=== PATIENT | female | born 1965 | race Caucasian/White ===

== ENCOUNTER 2021-09-05 22:38 | Inpatient (IN) | payer SELFPAY ==
[2021-09-06 01:08] VITALS: BMI 20.5
[2021-09-06] MEDS ORDERED: Acetaminophen 325 MG TAB PO PRN ×2 (01:42→01:43)
[2021-09-06] MEDS: Morphine 4 MG/ML VIAL SLOW IVP PRN ×7 (02:31→18:11)
[2021-09-06] MEDS ORDERED: Ondansetron PF 4 MG/2 ML Vial IVP PRN (03:51)
[2021-09-06] MEDS ORDERED: Piperacillin/Tazobactam 3.375 GM in Sodium Chloride 0.9% 100 ML IVPB SCH ×5 (04:00→14:00)
[2021-09-06] MEDS: Sodium Chloride 0.9% 1,000 ML IV SCH ×2 (05:40→19:03)
[2021-09-06] MEDS: Nicotine 21 MG PATCH TD SCH (05:42)
[2021-09-06 05:51] LABS: #Eosinphils 0.1 thou/uL (0.0-0.7); #Lymphocytes 1.6 thou/uL (1.20-3.40); #Neutrophils 5.2 thou/uL (1.40-6.50); %Basophils 0.3 % (0.0-1.0); %Eosinophils 1.4 % (0.0-10.0); %Lymphocytes 19.7 % (21.0-51.0); %Monocytes 13.1 % (0.0-10.0); %Neutrophils 65.5 % (42.0-75.0); Hemoglobin 7.1 g/dL (12.0-16.0); Mean Corpuscular HGB CONC 31.6 g/dL (32.0-36.0); Mean Corpuscular Hemoglobin 25.9 pg (27.0-31.0); Mean Corpuscular Volume 82.1 fL (78.0-98.0); Mean Platelet Volume 7.4 fL (7.4-10.4); Platelet Count 315 thou/uL (130-400); RBC Distribution Width 14.3 % (11.5-14.5); Red Blood Cell (RBC) Count 2.75 mill/uL (4.20-5.40)
[2021-09-06 06:02] LABS: Anion Gap 7 mmol/L (10-20); BUN (Urea Nitrogen) 4 mg/dL (9.8-20.1); Calc. Creatinine Clearance 77 mL/min (70-130); Carbon Dioxide 28 mmol/L (22-29); Chloride 107 mmol/L (98-107); Glucose 96 mg/dL (70-105); Potassium 3.5 mmol/L (3.5-5.1); Sodium 138 mmol/L (136-145)
[2021-09-06] MEDS ORDERED: Sodium Chloride 0.9% 500 ML IV SCH (09:00)
[2021-09-06] MEDS: D5 1/2 NS w/20 mEq KCL 1,000 ML IV SCH ×2 (09:52→19:01)
[2021-09-06 11:45] LABS: INR-International Normal Ratio 1.2; Prothrombin Time 14.9 sec (12.0-14.7)
[2021-09-06 11:46] LABS: PTT 32.9 sec (22.9-36.1)
[2021-09-06 11:50] LABS: Iron Less than 8 ug/dL (50-170); Iron Binding Capacity, Total 190 mcg/dL (265-497)
[2021-09-06 13:20] LABS: Hemoglobin 6.9 g/dL (12.0-16.0)
[2021-09-06] MEDS ORDERED: Sodium Bicarbonate 2.5 MEQ/5 ML VIAL ONE (13:46)
[2021-09-06] MEDS ORDERED: Fentanyl 100 MCG/2 ML VIAL ONE (13:46)
[2021-09-06] MEDS ORDERED: Midazolam HCl 2 mg/2 ml Vial ONE (13:46)
[2021-09-06] MEDS ORDERED: Meropenem 1 GM in Sodium Chloride 0.9% 100 ML IVPB SCH (14:00)
[2021-09-06] MEDS ORDERED: Ondansetron PF 4 MG/2 ML Vial ONE (14:14)
[2021-09-06] MEDS: Ondansetron PF 4 MG/2 ML Vial IVP PRN ×3 (14:14→23:06)
[2021-09-06] MEDS ORDERED: Morphine 4 MG/ML VIAL ONE (14:32)
[2021-09-06] MEDS ORDERED: Cyanocobalamin 1000 MCG/ML VIAL IM SCH (17:30)
[2021-09-06] MEDS: Iron, Sodium Ferric Gluconate 125 MG in Sodium Chloride 0.9% 100 ML IVPB SCH (21:40)
[2021-09-06] MEDS: HYDROcodone/Acetaminophen 5/325 mg Tablet PO PRN (21:48)
[2021-09-06] MEDS: Zolpidem Tartrate 5 MG TAB PO PRN (21:49)
[2021-09-06 22:57] LABS: Hemoglobin 8.1 g/dL (12.0-16.0)
[2021-09-06] MEDS: Meropenem 1 GM in Sodium Chloride 0.9% 100 ML IVPB SCH (23:06)
[2021-09-07] MEDS: Nicotine 21 MG PATCH TD SCH (03:51)
[2021-09-07 05:28] LABS: #Eosinphils 0.1 thou/uL (0.0-0.7); #Lymphocytes 1.1 thou/uL (1.20-3.40); #Monocytes 0.9 thou/uL (0.11-0.59); #Neutrophils 4.7 thou/uL (1.40-6.50); %Basophils 0.3 % (0.0-1.0); %Eosinophils 0.8 % (0.0-10.0); %Lymphocytes 16.1 % (21.0-51.0); %Monocytes 13.9 % (0.0-10.0); %Neutrophils 68.9 % (42.0-75.0); Hemoglobin 7.5 g/dL (12.0-16.0); Mean Corpuscular HGB CONC 31.9 g/dL (32.0-36.0); Mean Corpuscular Hemoglobin 26.2 pg (27.0-31.0); Mean Corpuscular Volume 82.2 fL (78.0-98.0); Mean Platelet Volume 7.7 fL (7.4-10.4); Platelet Count 273 thou/uL (130-400); RBC Distribution Width 14.1 % (11.5-14.5); Red Blood Cell (RBC) Count 2.84 mill/uL (4.20-5.40); White Blood Cell (WBC) Count 6.8 thou/uL (4.8-10.8)
[2021-09-07 05:50] LABS: Anion Gap 8 mmol/L (10-20); BUN (Urea Nitrogen) Less than 4 mg/dL (9.8-20.1); Calc. Creatinine Clearance 82 mL/min (70-130); Calcium 7.8 mg/dL (7.8-10.44); Carbon Dioxide 26 mmol/L (22-29); Chloride 105 mmol/L (98-107); Glucose 305 mg/dL (70-105); Potassium 4.1 mmol/L (3.5-5.1); Sodium 135 mmol/L (136-145)
[2021-09-07] MEDS: Meropenem 1 GM in Sodium Chloride 0.9% 100 ML IVPB SCH ×2 (09:26→16:40)
[2021-09-07] MEDS: Cyanocobalamin (Vitamin B-12) 1,000 MCG TAB PO SCH (09:27)
[2021-09-07] MEDS: PARoxetine 20 MG TAB PO SCH (09:27)
[2021-09-07] MEDS: D5 1/2 NS w/20 mEq KCL 1,000 ML IV SCH ×2 (09:29→19:31)
[2021-09-07] MEDS: HYDROcodone/Acetaminophen 5/325 mg Tablet PO PRN ×3 (09:51→22:23)
[2021-09-07] MEDS: MULTIVIT/IRON SULF/FOLIC ACID 1 EACH TAB PO SCH (11:10)
[2021-09-07] MEDS: Iron, Sodium Ferric Gluconate 125 MG in Sodium Chloride 0.9% 100 ML IVPB SCH (20:56)
[2021-09-07] MEDS: Zolpidem Tartrate 5 MG TAB PO PRN (22:23)
[2021-09-08] MEDS: Meropenem 1 GM in Sodium Chloride 0.9% 100 ML IVPB SCH ×3 (00:02→15:19)
[2021-09-08] MEDS: Nicotine 21 MG PATCH TD SCH (03:59)
[2021-09-08] MEDS: D5 1/2 NS w/20 mEq KCL 1,000 ML IV SCH (03:59)
[2021-09-08 05:29] LABS: #Eosinphils 0.1 thou/uL (0.0-0.7); #Lymphocytes 1.1 thou/uL (1.20-3.40); #Monocytes 0.9 thou/uL (0.11-0.59); #Neutrophils 5.2 thou/uL (1.40-6.50); %Basophils 0.3 % (0.0-1.0); %Eosinophils 1.7 % (0.0-10.0); %Lymphocytes 15.5 % (21.0-51.0); %Monocytes 11.8 % (0.0-10.0); %Neutrophils 70.7 % (42.0-75.0); Hemoglobin 7.8 g/dL (12.0-16.0); Mean Corpuscular HGB CONC 31.7 g/dL (32.0-36.0); Mean Corpuscular Hemoglobin 26.3 pg (27.0-31.0); Mean Corpuscular Volume 82.9 fL (78.0-98.0); Mean Platelet Volume 7.6 fL (7.4-10.4); Platelet Count 303 thou/uL (130-400); RBC Distribution Width 14.3 % (11.5-14.5); Red Blood Cell (RBC) Count 2.96 mill/uL (4.20-5.40); White Blood Cell (WBC) Count 7.3 thou/uL (4.8-10.8)
[2021-09-08 05:50] LABS: Anion Gap 11 mmol/L (10-20); BUN (Urea Nitrogen) Less than 4 mg/dL (9.8-20.1); Calc. Creatinine Clearance 87 mL/min (70-130); Calcium 8.4 mg/dL (7.8-10.44); Carbon Dioxide 25 mmol/L (22-29); Chloride 105 mmol/L (98-107); Glucose 92 mg/dL (70-105); Potassium 3.3 mmol/L (3.5-5.1); Sodium 138 mmol/L (136-145)
[2021-09-08] MEDS: HYDROcodone/Acetaminophen 5/325 mg Tablet PO PRN ×3 (06:31→22:14)
[2021-09-08] MEDS: PARoxetine 20 MG TAB PO SCH (09:06)
[2021-09-08] MEDS: MULTIVIT/IRON SULF/FOLIC ACID 1 EACH TAB PO SCH (09:06)
[2021-09-08] MEDS: Cyanocobalamin (Vitamin B-12) 1,000 MCG TAB PO SCH (09:06)
[2021-09-08] MEDS ORDERED: Cyanocobalamin 1000 MCG/ML VIAL IM SCH (10:45)
[2021-09-08] MEDS ORDERED: Potassium Chloride 20 MEQ TAB PO SCH (10:45)
[2021-09-08] MEDS ORDERED: Saccharomyces boulardii 250 MG CAP PO SCH (11:15)
[2021-09-08] MEDS: Iron, Sodium Ferric Gluconate 125 MG in Sodium Chloride 0.9% 100 ML IVPB SCH (18:47)
[2021-09-08] MEDS ORDERED: Cipro 250 MG TAB PO SCH (22:00)
[2021-09-09] MEDS: Zolpidem Tartrate 5 MG TAB PO PRN ×2 (00:31→22:12)
[2021-09-09] MEDS: Morphine 4 MG/ML VIAL SLOW IVP PRN (00:38)
[2021-09-09] MEDS: metroNIDAZOLE 500 MG TAB PO SCH ×4 (01:10→20:04)
[2021-09-09] MEDS: Nicotine 21 MG PATCH TD SCH (04:29)
[2021-09-09] MEDS: D5 1/2 NS w/20 mEq KCL 1,000 ML IV SCH (04:29)
[2021-09-09] MEDS: Cipro 250 MG TAB PO SCH ×2 (06:21→20:04)
[2021-09-09] MEDS: Cyanocobalamin (Vitamin B-12) 1,000 MCG TAB PO SCH (09:01)
[2021-09-09] MEDS: MULTIVIT/IRON SULF/FOLIC ACID 1 EACH TAB PO SCH (09:01)
[2021-09-09] MEDS: PARoxetine 20 MG TAB PO SCH (09:02)
[2021-09-09] MEDS: Iron, Sodium Ferric Gluconate 125 MG in Sodium Chloride 0.9% 100 ML IVPB SCH (09:02)
[2021-09-09] MEDS: Saccharomyces boulardii 250 MG CAP PO SCH (09:02)
[2021-09-09] MEDS: HYDROcodone/Acetaminophen 5/325 mg Tablet PO PRN ×3 (12:17→22:12)
[2021-09-10] MEDS: D5 1/2 NS w/20 mEq KCL 1,000 ML IV SCH (04:04)
[2021-09-10] MEDS: Nicotine 21 MG PATCH TD SCH (04:05)
[2021-09-10] MEDS: Cipro 250 MG TAB PO SCH ×2 (05:18→20:04)
[2021-09-10 05:38] LABS: #Eosinphils 0.1 thou/uL (0.0-0.7); #Lymphocytes 1.1 thou/uL (1.20-3.40); #Monocytes 0.9 thou/uL (0.11-0.59); #Neutrophils 5.2 thou/uL (1.40-6.50); %Basophils 0.6 % (0.0-1.0); %Eosinophils 1.6 % (0.0-10.0); %Lymphocytes 15.6 % (21.0-51.0); %Monocytes 11.7 % (0.0-10.0); %Neutrophils 70.4 % (42.0-75.0); Hemoglobin 7.8 g/dL (12.0-16.0); Mean Corpuscular HGB CONC 31.6 g/dL (32.0-36.0); Mean Corpuscular Hemoglobin 26.4 pg (27.0-31.0); Mean Corpuscular Volume 83.7 fL (78.0-98.0); Mean Platelet Volume 7.7 fL (7.4-10.4); Platelet Count 304 thou/uL (130-400); RBC Distribution Width 15.1 % (11.5-14.5); Red Blood Cell (RBC) Count 2.95 mill/uL (4.20-5.40); White Blood Cell (WBC) Count 7.3 thou/uL (4.8-10.8)
[2021-09-10 05:46] LABS: INR-International Normal Ratio 1.2; PTT 39.5 sec (22.9-36.1); Prothrombin Time 15.5 sec (12.0-14.7)
[2021-09-10 06:09] LABS: ALT (SGPT) 8 U/L (8-55); AST (SGOT) 14 U/L (5-34); Albumin 2.6 g/dL (3.5-5.0); Alkaline Phosphatase 83 U/L (40-110); Anion Gap 10 mmol/L (10-20); BUN (Urea Nitrogen) 4 mg/dL (9.8-20.1); Bilirubin, Total 0.2 mg/dL (0.2-1.2); Calc. Creatinine Clearance 90 mL/min (70-130); Calcium 8.5 mg/dL (7.8-10.44); Carbon Dioxide 27 mmol/L (22-29); Chloride 106 mmol/L (98-107); Globulin 3.6 g/dL (2.4-3.5); Glucose 92 mg/dL (70-105); Magnesium 1.8 mg/dL (1.6-2.6); Phosphorus 2.9 mg/dL (2.3-4.7); Potassium 3.8 mmol/L (3.5-5.1); Protein, Total 6.2 g/dL (6.0-8.3); Sodium 139 mmol/L (136-145)
[2021-09-10] MEDS: metroNIDAZOLE 500 MG TAB PO SCH ×3 (09:06→20:04)
[2021-09-10] MEDS: MULTIVIT/IRON SULF/FOLIC ACID 1 EACH TAB PO SCH (09:06)
[2021-09-10] MEDS: Cyanocobalamin (Vitamin B-12) 1,000 MCG TAB PO SCH (09:06)
[2021-09-10] MEDS: Saccharomyces boulardii 250 MG CAP PO SCH (09:06)
[2021-09-10] MEDS: PARoxetine 20 MG TAB PO SCH (09:06)
[2021-09-10] MEDS: Iron, Sodium Ferric Gluconate 125 MG in Sodium Chloride 0.9% 100 ML IVPB SCH (09:06)
[2021-09-10] MEDS ORDERED: Enoxaparin Sodium 40 MG/0.4 ML SYRINGE SC SCH (10:00)
[2021-09-10] MEDS: HYDROcodone/Acetaminophen 5/325 mg Tablet PO PRN ×3 (13:51→23:47)
[2021-09-10] MEDS: Zolpidem Tartrate 5 MG TAB PO PRN (23:47)
[2021-09-11] MEDS: D5 1/2 NS w/20 mEq KCL 1,000 ML IV SCH ×2 (02:29→17:39)
[2021-09-11] MEDS: Nicotine 21 MG PATCH TD SCH (04:53)
[2021-09-11] MEDS: Cipro 250 MG TAB PO SCH ×2 (04:53→20:38)
[2021-09-11] MEDS: HYDROcodone/Acetaminophen 5/325 mg Tablet PO PRN ×4 (04:54→21:59)
[2021-09-11] MEDS: Saccharomyces boulardii 250 MG CAP PO SCH (08:26)
[2021-09-11] MEDS: PARoxetine 20 MG TAB PO SCH (08:27)
[2021-09-11] MEDS: MULTIVIT/IRON SULF/FOLIC ACID 1 EACH TAB PO SCH (08:27)
[2021-09-11] MEDS: Cyanocobalamin (Vitamin B-12) 1,000 MCG TAB PO SCH (08:27)
[2021-09-11] MEDS: metroNIDAZOLE 500 MG TAB PO SCH ×3 (08:27→20:38)
[2021-09-11 09:53] LABS: #Eosinphils 0.2 thou/uL (0.0-0.7); #Monocytes 0.8 thou/uL (0.11-0.59); #Neutrophils 5.5 thou/uL (1.40-6.50); %Basophils 0.2 % (0.0-1.0); %Eosinophils 2.1 % (0.0-10.0); %Lymphocytes 13.7 % (21.0-51.0); %Monocytes 11.1 % (0.0-10.0); %Neutrophils 72.9 % (42.0-75.0); Hemoglobin 8.7 g/dL (12.0-16.0); Mean Corpuscular HGB CONC 31.7 g/dL (32.0-36.0); Mean Corpuscular Hemoglobin 26.5 pg (27.0-31.0); Mean Corpuscular Volume 83.3 fL (78.0-98.0); Mean Platelet Volume 7.9 fL (7.4-10.4); Platelet Count 319 thou/uL (130-400); RBC Distribution Width 15.8 % (11.5-14.5); Red Blood Cell (RBC) Count 3.29 mill/uL (4.20-5.40); White Blood Cell (WBC) Count 7.6 thou/uL (4.8-10.8)
[2021-09-11 10:19] LABS: ALT (SGPT) 8 U/L (8-55); AST (SGOT) 11 U/L (5-34); Albumin 2.6 g/dL (3.5-5.0); Alkaline Phosphatase 86 U/L (40-110); Anion Gap 12 mmol/L (10-20); BUN (Urea Nitrogen) 4 mg/dL (9.8-20.1); Bilirubin, Total 0.2 mg/dL (0.2-1.2); Calc. Creatinine Clearance 85 mL/min (70-130); Calcium 8.4 mg/dL (7.8-10.44); Carbon Dioxide 26 mmol/L (22-29); Chloride 104 mmol/L (98-107); Glucose 115 mg/dL (70-105); Magnesium 1.8 mg/dL (1.6-2.6); Phosphorus 2.8 mg/dL (2.3-4.7); Potassium 3.8 mmol/L (3.5-5.1); Protein, Total 6.6 g/dL (6.0-8.3); Sodium 138 mmol/L (136-145)
[2021-09-11] MEDS: Ondansetron PF 4 MG/2 ML Vial IVP PRN (11:28)
[2021-09-11] MEDS: Zolpidem Tartrate 5 MG TAB PO PRN (21:59)
[2021-09-12] MEDS: HYDROcodone/Acetaminophen 5/325 mg Tablet PO PRN ×3 (01:43→15:51)
[2021-09-12] MEDS: Nicotine 21 MG PATCH TD SCH (03:27)
[2021-09-12] MEDS: D5 1/2 NS w/20 mEq KCL 1,000 ML IV SCH (04:57)
[2021-09-12] MEDS: Cipro 250 MG TAB PO SCH (04:57)
[2021-09-12 05:50] LABS: #Eosinphils 0.1 thou/uL (0.0-0.7); #Lymphocytes 1.4 thou/uL (1.20-3.40); #Monocytes 0.8 thou/uL (0.11-0.59); #Neutrophils 5.4 thou/uL (1.40-6.50); %Basophils 0.3 % (0.0-1.0); %Eosinophils 1.8 % (0.0-10.0); %Lymphocytes 17.9 % (21.0-51.0); %Monocytes 10.9 % (0.0-10.0); %Neutrophils 69.1 % (42.0-75.0); Hemoglobin 8.1 g/dL (12.0-16.0); Mean Corpuscular HGB CONC 31.1 g/dL (32.0-36.0); Mean Corpuscular Hemoglobin 26.1 pg (27.0-31.0); Mean Corpuscular Volume 84.1 fL (78.0-98.0); Mean Platelet Volume 7.6 fL (7.4-10.4); Platelet Count 322 thou/uL (130-400); Red Blood Cell (RBC) Count 3.11 mill/uL (4.20-5.40); White Blood Cell (WBC) Count 7.8 thou/uL (4.8-10.8)
[2021-09-12 06:14] LABS: ALT (SGPT) Less than 7 U/L (8-55); AST (SGOT) 11 U/L (5-34); Albumin 2.5 g/dL (3.5-5.0); Alkaline Phosphatase 84 U/L (40-110); Anion Gap 10 mmol/L (10-20); BUN (Urea Nitrogen) 5 mg/dL (9.8-20.1); Bilirubin, Total 0.2 mg/dL (0.2-1.2); Calc. Creatinine Clearance 85 mL/min (70-130); Calcium 8.2 mg/dL (7.8-10.44); Carbon Dioxide 26 mmol/L (22-29); Chloride 106 mmol/L (98-107); Globulin 3.8 g/dL (2.4-3.5); Glucose 101 mg/dL (70-105); Magnesium 1.9 mg/dL (1.6-2.6); Phosphorus 3.1 mg/dL (2.3-4.7); Potassium 3.9 mmol/L (3.5-5.1); Protein, Total 6.3 g/dL (6.0-8.3); Sodium 138 mmol/L (136-145)
[2021-09-12] MEDS: Saccharomyces boulardii 250 MG CAP PO SCH (09:42)
[2021-09-12] MEDS: PARoxetine 20 MG TAB PO SCH (09:42)
[2021-09-12] MEDS: MULTIVIT/IRON SULF/FOLIC ACID 1 EACH TAB PO SCH (09:42)
[2021-09-12] MEDS: Cyanocobalamin (Vitamin B-12) 1,000 MCG TAB PO SCH (09:42)
[2021-09-12] MEDS: metroNIDAZOLE 500 MG TAB PO SCH ×2 (09:42→15:05)
[2021-09-12 16:24] VITALS: BP 107/70; TEMP 98.5
== END 2021-09-12 16:29 | disposition home or self-care (01) | DRG 374 ==
LOC: SURG B 22:38
PROVIDERS: ADMIT Student in an Organized Health Care Education/Training Program; ATTEND Family Medicine
PROC: 30233N1 Transfusion of Nonautologous Red Blood Cells into Peripheral Vein, Percutaneous Approach (ICD-10-PCS; 2021-09-05)
PROC: 0FB03ZX Excision of Liver, Percutaneous Approach, Diagnostic (ICD-10-PCS; principal; 2021-09-06)
DX: C18.3 Malignant neoplasm of hepatic flexure (principal); K63.1 Perforation of intestine (nontraumatic); A41.9 Sepsis, unspecified organism; C78.7 Secondary malignant neoplasm of liver and intrahepatic bile duct; Z51.5 Encounter for palliative care; Z66 Do not resuscitate; F32.A Depression, unspecified; E53.8 Deficiency of other specified B group vitamins; D64.9 Anemia, unspecified; F41.9 Anxiety disorder, unspecified; R73.03 Prediabetes; G47.00 Insomnia, unspecified; F17.210 Nicotine dependence, cigarettes, uncomplicated; Z79.899 Other long term (current) drug therapy; Z90.89 Acquired absence of other organs
CPT/HCPCS: 36415; 36430; 47000; 49020; 77002; 80048; 80053; 82378; 82607; 82746; 83036; 83540; 83550; 83735; 84100; 85025; 85610; 85730; 86850; 86900; 86901; 88307; 88341; 88342; C1729; J2185; J2250; J2270; J2405; J2543; J2916; J3010; J3420; J3480; J3490; J7030; J7050; P9016

== ENCOUNTER 2021-09-20 00:16 | Inpatient (IN) | payer SELFPAY ==
[2021-09-20] MEDS: Morphine 4 MG/ML VIAL SLOW IVP PRN ×2 (03:04→08:23)
[2021-09-20 03:34] VITALS: BMI 21.7
[2021-09-20] MEDS: D5 0.9% NS w/ 20 mEq KCl 1,000 ML IV SCH ×2 (09:30→17:23)
[2021-09-20] MEDS ORDERED: Midazolam HCl 2 mg/2 ml Vial ONE (09:33)
[2021-09-20] MEDS ORDERED: Fentanyl 100 MCG/2 ML VIAL ONE (09:33)
[2021-09-20] MEDS: Famotidine/PF 20 mg/2ml Vial SLOW IVP SCH ×2 (09:33→21:59)
[2021-09-20] MEDS: Pantoprazole 40 MG VIAL IVP SCH ×2 (09:33→21:59)
[2021-09-20] MEDS ORDERED: SUGAMMADEX SODIUM 200 MG/2 ML VIAL ONE (09:34)
[2021-09-20] MEDS ORDERED: Lactated Ringer's 1,000 ML IV SCH (09:45)
[2021-09-20] MEDS ORDERED: Potassium Chloride 20 MEQ in Premix Bag 1 BAG IVPB SCH (09:45)
[2021-09-20] MEDS ORDERED: Piperacillin/Tazobactam 3.375 GM in Sodium Chloride 0.9% 100 ML IVPB SCH (10:00)
[2021-09-20] MEDS ORDERED: Piperacillin/Tazobactam 3.375 GM VIAL ONE (10:51)
[2021-09-20] MEDS ORDERED: Sodium Chloride 0.9% 100 ML ONE (10:52)
[2021-09-20] MEDS ORDERED: Dexamethasone 20 MG/5 ML VIAL ONE (11:05)
[2021-09-20] MEDS ORDERED: Rocuronium Bromide 10 MG/ML (10ML VIAL) ONE (11:05)
[2021-09-20] MEDS ORDERED: Ondansetron PF 4 MG/2 ML Vial ONE ×2 (11:05→13:37)
[2021-09-20] MEDS ORDERED: Lidocaine 1% PF 5 ML VIAL ONE (11:05)
[2021-09-20] MEDS ORDERED: PROPOFOL 200 MG/20 ML VIAL ONE (11:05)
[2021-09-20] MEDS ORDERED: ePHEDrine 50 MG/ML VIAL ONE (11:05)
[2021-09-20] MEDS ORDERED: Ketorolac Tromethamine 30 MG/ML VIAL ONE (11:05)
[2021-09-20] MEDS ORDERED: Bupivacaine 0.25% 10 ML VIAL ONE (11:30)
[2021-09-20] MEDS ORDERED: EPINEPHrine 1 MG/ML AMP ONE (11:30)
[2021-09-20 12:34] LABS: SARS-CoV-2 NAA Rapid Test Not Detected (NotDetected)
[2021-09-20] MEDS ORDERED: Meperidine HCl/PF 25 MG/ML VIAL SLOW IVP PRN (12:50)
[2021-09-20] MEDS ORDERED: Promethazine HCl 25 MG/ML VIAL IM PRN ×2 (12:50→13:28)
[2021-09-20] MEDS ORDERED: Promethazine HCl 25 MG/ML VIAL IVPB PRN (12:50)
[2021-09-20] MEDS ORDERED: HYDROmorphone 2 MG/ML VIAL SLOW IVP PRN (12:50)
[2021-09-20] MEDS ORDERED: Ondansetron HCl/PF 4 MG/2 ML Vial IVP PRN (12:50)
[2021-09-20] MEDS ORDERED: Naloxone HCl 0.4 mg/ml Vial IV PRN (13:28)
[2021-09-20] MEDS ORDERED: diphenhydrAMINE 50 MG/ML VIAL IM PRN (13:28)
[2021-09-20] MEDS ORDERED: fentaNYL Citrate/PF 2,000 MCG in Sodium Chloride 0.9% 60 ML IV PRN (13:28)
[2021-09-20] MEDS ORDERED: Zolpidem Tartrate 5 MG TAB PO PRN (13:28)
[2021-09-20] MEDS ORDERED: Ondansetron PF 4 MG/2 ML Vial IVP PRN (13:28)
[2021-09-20] MEDS ORDERED: diphenhydrAMINE 25 MG CAP PO PRN (13:28)
[2021-09-20] MEDS ORDERED: diphenhydrAMINE 50 MG/ML VIAL IVP PRN (13:28)
[2021-09-20] MEDS ORDERED: Communication Order-Pharmacy FS SCH (13:30)
[2021-09-20] MEDS: D5 1/2 NS w/20 mEq KCL 1,000 ML IV SCH (17:24)
[2021-09-20] MEDS: Piperacillin/Tazobactam 3.375 GM in Sodium Chloride 0.9% 100 ML IVPB SCH (18:43)
[2021-09-21] MEDS: D5 1/2 NS w/20 mEq KCL 1,000 ML IV SCH ×3 (01:17→12:00)
[2021-09-21] MEDS: Piperacillin/Tazobactam 3.375 GM in Sodium Chloride 0.9% 100 ML IVPB SCH ×3 (01:17→19:13)
[2021-09-21 05:51] LABS: #Lymphocytes 0.9 thou/uL (1.20-3.40); #Monocytes 0.5 thou/uL (0.11-0.59); #Neutrophils 4.5 thou/uL (1.40-6.50); %Basophils 0.3 % (0.0-1.0); %Eosinophils 0.2 % (0.0-10.0); %Monocytes 8.8 % (0.0-10.0); %Neutrophils 75.6 % (42.0-75.0); Mean Platelet Volume 8.2 fL (7.4-10.4); RBC Distribution Width 16.6 % (11.5-14.5)
[2021-09-21 06:13] LABS: Anion Gap 13 mmol/L (10-20); BUN (Urea Nitrogen) 4 mg/dL (9.8-20.1); Calc. Creatinine Clearance 91 mL/min (70-130); Carbon Dioxide 21 mmol/L (22-29); Chloride 111 mmol/L (98-107); Glucose 119 mg/dL (70-105); Potassium 4.3 mmol/L (3.5-5.1); Sodium 141 mmol/L (136-145)
[2021-09-21 06:55] LABS: Red Blood Cell (RBC) Count 2.69 mill/uL (4.20-5.40); White Blood Cell (WBC) Count 6.5 thou/uL (4.8-10.8)
[2021-09-21 06:56] LABS: Hemoglobin 6.9 g/dL (12.0-16.0); Mean Corpuscular Volume 83.5 fL (78.0-98.0)
[2021-09-21 06:57] LABS: Mean Corpuscular HGB CONC 30.5 g/dL (32.0-36.0); Mean Corpuscular Hemoglobin 25.5 pg (27.0-31.0); Platelet Count 313 thou/uL (130-400)
[2021-09-21] MEDS: Pantoprazole 40 MG VIAL IVP SCH ×2 (08:35→21:30)
[2021-09-21] MEDS: Famotidine/PF 20 mg/2ml Vial SLOW IVP SCH ×2 (08:35→21:31)
[2021-09-21] MEDS: Zolpidem Tartrate 5 MG TAB PO SCH (21:30)
[2021-09-21] MEDS: Nicotine 21 MG PATCH TOP SCH (21:31)
[2021-09-21] MEDS: PARoxetine 20 MG TAB PO SCH (21:31)
[2021-09-22] MEDS: Piperacillin/Tazobactam 3.375 GM in Sodium Chloride 0.9% 100 ML IVPB SCH ×3 (02:10→17:40)
[2021-09-22 05:50] LABS: #Eosinphils 0.1 thou/uL (0.0-0.7); #Lymphocytes 1.3 thou/uL (1.20-3.40); #Monocytes 0.8 thou/uL (0.11-0.59); #Neutrophils 5.9 thou/uL (1.40-6.50); %Basophils 0.2 % (0.0-1.0); %Eosinophils 1.3 % (0.0-10.0); %Lymphocytes 16.4 % (21.0-51.0); %Monocytes 9.2 % (0.0-10.0); %Neutrophils 72.9 % (42.0-75.0); Mean Corpuscular HGB CONC 32.9 g/dL (32.0-36.0); Mean Corpuscular Hemoglobin 27.3 pg (27.0-31.0); Mean Corpuscular Volume 82.9 fL (78.0-98.0); Mean Platelet Volume 7.3 fL (7.4-10.4); Platelet Count 398 thou/uL (130-400); RBC Distribution Width 16.2 % (11.5-14.5); Red Blood Cell (RBC) Count 3.65 mill/uL (4.20-5.40); White Blood Cell (WBC) Count 8.1 thou/uL (4.8-10.8)
[2021-09-22 06:08] LABS: Anion Gap 10 mmol/L (10-20); BUN (Urea Nitrogen) Less than 4 mg/dL (9.8-20.1); Calc. Creatinine Clearance 85 mL/min (70-130); Calcium 8.4 mg/dL (7.8-10.44); Carbon Dioxide 26 mmol/L (22-29); Chloride 104 mmol/L (98-107); Glucose 105 mg/dL (70-105); Potassium 3.8 mmol/L (3.5-5.1); Sodium 136 mmol/L (136-145)
[2021-09-22] MEDS: D5 1/2 NS w/20 mEq KCL 1,000 ML IV SCH ×2 (08:33→16:41)
[2021-09-22] MEDS: Pantoprazole 40 MG VIAL IVP SCH (08:33)
[2021-09-22] MEDS: Famotidine/PF 20 mg/2ml Vial SLOW IVP SCH (08:33)
[2021-09-22] MEDS ORDERED: traMADol HCl 50 MG TAB PO PRN (18:38)
[2021-09-22] MEDS ORDERED: Ibuprofen 600 MG TAB PO PRN (18:38)
[2021-09-22] MEDS ORDERED: Acetaminophen 500 MG TAB PO PRN (18:38)
[2021-09-22] MEDS ORDERED: HYDROcodone/Acetaminophen 5/325 mg Tablet PO PRN (18:39)
[2021-09-22] MEDS ORDERED: Acetaminophen 500 MG TAB PO SCH (18:45)
[2021-09-22] MEDS ORDERED: Zolpidem Tartrate 5 MG TAB PO PRN (18:45)
[2021-09-22] MEDS: Zolpidem Tartrate 5 MG TAB PO SCH (21:32)
[2021-09-22] MEDS: PARoxetine 20 MG TAB PO SCH (21:32)
[2021-09-22] MEDS: Nicotine 21 MG PATCH TOP SCH (21:32)
[2021-09-23] MEDS: Piperacillin/Tazobactam 3.375 GM in Sodium Chloride 0.9% 100 ML IVPB SCH (01:26)
[2021-09-23] MEDS ORDERED: PARoxetine 20 MG TAB PO SCH (09:00)
[2021-09-23 13:36] VITALS: BP 109/71; TEMP 97.7
== END 2021-09-23 13:50 | disposition home or self-care (01) | DRG 329 ==
LOC: ERS 00:16 → NEURO 01:23
PROVIDERS: ADMIT Specialist; ATTEND Specialist
PROC: 0DBH0ZZ Excision of Cecum, Open Approach (ICD-10-PCS; principal; 2021-09-20)
PROC: 0D1B0Z4 Bypass Ileum to Cutaneous, Open Approach (ICD-10-PCS; 2021-09-20)
DX: C18.9 Malignant neoplasm of colon, unspecified (principal); K63.1 Perforation of intestine (nontraumatic); C78.7 Secondary malignant neoplasm of liver and intrahepatic bile duct; K56.50 Intestinal adhesions [bands], unspecified as to partial versus complete obstruction; K63.2 Fistula of intestine; Z20.822 Contact with and (suspected) exposure to COVID-19; F41.9 Anxiety disorder, unspecified; F17.210 Nicotine dependence, cigarettes, uncomplicated; F32.A Depression, unspecified
CPT/HCPCS: 36415; 36430; 71045; 80048; 85025; 86850; 86900; 86901; 88307; A4649; C1776; C9113; J0171; J1100; J1885; J2250; J2270; J2405; J2543; J2704; J3010; J3480; J3490; P9016; S0020; S0028; U0002

== ENCOUNTER 2021-10-03 12:10 | Outpatient (CLI) | payer SELFPAY ==
[2021-10-03 13:33] LABS: #Basophils 0.1 10x3/uL (0.0-0.2); #Eosinphils 0.1 10x3/uL (0.0-0.5); #Monocytes 1.2 10x3/uL (0.0-1.1); #Neutrophils 9.2 10x3/uL (1.5-8.4); %Basophils 0.5 % (0.0-2.0); %Eosinophils 0.6 % (0.0-6.0); %Lymphocytes 15.9 % (18.0-47.0); %Monocytes 9.7 % (0.0-10.0); %Neutrophils 72.6 % (40.0-75.0); Hemoglobin 11.5 g/dL (12.0-15.5); Mean Corpuscular HGB CONC 31.5 g/dL (32.0-36.0); Mean Corpuscular Hemoglobin 24.9 pg (27.0-33.0); Mean Corpuscular Volume 79.2 fl (81.6-98.3); Mean Platelet Volume 10.7 fl (7.4-10.4); Platelet Count 453 10x3/uL (150-450); RBC Distribution Width 18.6 % (11.5-14.5); Red Blood Cell (RBC) Count 4.61 10x6/uL (3.90-5.03); White Blood Cell (WBC) Count 12.7 10x3/uL (3.5-10.5)
[2021-10-03 13:51] LABS: PTT 24.7 sec (22.0-33.0); Prothrombin Time 10.9 sec (9.5-12.1)
[2021-10-03 14:14] LABS: Anion Gap 18 mmol/L (10-20); BUN (Urea Nitrogen) 61 mg/dL (9.8-20.1); Calc. Creatinine Clearance 0 mL/min (70-130); Calcium 9.9 mg/dL (7.8-10.44); Carbon Dioxide 32 mmol/L (22-29); Chloride 83 mmol/L (98-107); Glucose 117 mg/dL (70-105); Sodium 129 mmol/L (136-145)
[2021-10-03 14:17] LABS: ALT (SGPT) 6 U/L (8-55); AST (SGOT) 23 U/L (5-34); Albumin 4.3 g/dL (3.5-5.0); Alkaline Phosphatase 152 U/L (40-110); Bilirubin, Direct 0.2 mg/dL (0.1-0.3); Bilirubin, Total 0.4 mg/dL (0.2-1.2); Protein, Total 9.1 g/dL (6.0-8.3)
[2021-10-03 20:13] LABS: SARS-CoV-2 PCR by NAA Not Detected (NotDetected)
== END 2021-10-03 12:11 | disposition home or self-care (01) ==
LOC: LABBT 12:10
PROVIDERS: ATTEND Surgery
DX: Z01.818 Encounter for other preprocedural examination (principal); C18.9 Malignant neoplasm of colon, unspecified; Z20.822 Contact with and (suspected) exposure to COVID-19
CPT/HCPCS: 80048; 80076; 85025; 85610; 85730; 93005; 93010; U0003; U0005

== ENCOUNTER 2021-10-06 07:22 | Inpatient (IN) | payer OTHER ==
[2021-10-03 10:54] VITALS: BMI 21.4
[2021-10-06] MEDS ORDERED: Acetaminophen 500 MG TAB ONE (07:42)
[2021-10-06] MEDS ORDERED: ceFAZolin 2 GM/DEX 5% 100 ML BAG ONE ×2 (07:42→08:04)
[2021-10-06] MEDS ORDERED: Ketorolac Tromethamine 30 MG/ML VIAL ONE (07:42)
[2021-10-06] MEDS ORDERED: Bupivacaine PF 0.5% 30 ML VIAL ONE (09:25)
[2021-10-06] MEDS ORDERED: EPINEPHrine 1 MG/ML AMP ONE (09:25)
[2021-10-06] MEDS ORDERED: Famotidine/PF 20 mg/2ml Vial ONE (09:31)
[2021-10-06] MEDS ORDERED: Midazolam HCl 2 mg/2 ml Vial ONE (09:31)
[2021-10-06] MEDS ORDERED: Fentanyl 100 MCG/2 ML VIAL ONE (09:31)
[2021-10-06] MEDS ORDERED: Phenylephrine 10 MG/ML VIAL ONE (09:53)
[2021-10-06] MEDS ORDERED: Ondansetron PF 4 MG/2 ML Vial ONE (09:53)
[2021-10-06] MEDS ORDERED: Metoclopramide HCl 10 MG/2 ML VIAL ONE (09:53)
[2021-10-06] MEDS ORDERED: PROPOFOL 200 MG/20 ML VIAL ONE (09:53)
[2021-10-06] MEDS ORDERED: ePHEDrine 50 MG/ML VIAL ONE (09:53)
[2021-10-06] MEDS ORDERED: Lidocaine 1% PF 5 ML VIAL ONE (09:53)
[2021-10-06] MEDS ORDERED: Ondansetron HCl/PF 4 MG/2 ML Vial IVP PRN (11:00)
[2021-10-06] MEDS ORDERED: Prevnar 13-Val Conj/PF 0.5 ML SYRINGE IM ONE (13:45)
[2021-10-06] MEDS: Sodium Chloride 0.9% 1,000 ML IV SCH ×3 (14:10→22:08)
[2021-10-06] MEDS ORDERED: Ibuprofen 600 MG TAB PO PRN (17:24)
[2021-10-06] MEDS ORDERED: HYDROcodone/Acetaminophen 5/325 mg Tablet PO PRN (17:24)
[2021-10-06] MEDS ORDERED: Acetaminophen 325 MG TAB PO PRN (17:24)
[2021-10-06] MEDS ORDERED: Zolpidem Tartrate 5 MG TAB PO PRN (18:02)
[2021-10-06] MEDS: Diphenoxylate HCl/Atropine Tablet PO SCH ×2 (18:13→23:58)
[2021-10-06 18:35] LABS: #Eosinphils 0.1 thou/uL (0.0-0.7); #Lymphocytes 1.8 thou/uL (1.20-3.40); #Monocytes 0.7 thou/uL (0.11-0.59); #Neutrophils 4.5 thou/uL (1.40-6.50); %Basophils 0.7 % (0.0-1.0); %Eosinophils 1.8 % (0.0-10.0); %Lymphocytes 24.8 % (21.0-51.0); %Monocytes 9.8 % (0.0-10.0); Mean Corpuscular HGB CONC 33.1 g/dL (32.0-36.0); Mean Corpuscular Hemoglobin 27.5 pg (27.0-31.0); Mean Corpuscular Volume 83.1 fL (78.0-98.0); Mean Platelet Volume 7.7 fL (7.4-10.4); Platelet Count 202 thou/uL (130-400); White Blood Cell (WBC) Count 7.1 thou/uL (4.8-10.8)
[2021-10-06 18:53] LABS: Anion Gap 12 mmol/L (10-20); BUN (Urea Nitrogen) 20 mg/dL (9.8-20.1); Calc. Creatinine Clearance 42 mL/min (70-130); Carbon Dioxide 24 mmol/L (22-29); Chloride 99 mmol/L (98-107); Glucose 124 mg/dL (70-105); Potassium 3.7 mmol/L (3.5-5.1); Sodium 131 mmol/L (136-145)
[2021-10-06] MEDS ORDERED: Ondansetron PF 4 MG/2 ML Vial IVP PRN (22:36)
[2021-10-06] MEDS ORDERED: Ondansetron ODT 4 MG TAB PO PRN (22:36)
[2021-10-07 01:18] LABS: Lactic Acid 1.4 mmol/L (0.5-2.2)
[2021-10-07] MEDS: Sodium Chloride 0.9% 1,000 ML IV SCH ×3 (03:39→13:57)
[2021-10-07] MEDS: Diphenoxylate HCl/Atropine Tablet PO SCH ×2 (06:09→13:56)
[2021-10-07] MEDS ORDERED: Cyanocobalamin (Vitamin B-12) 1,000 MCG TAB PO SCH (09:00)
[2021-10-07] MEDS ORDERED: PARoxetine 20 MG TAB PO SCH (09:00)
[2021-10-07 09:42] VITALS: BP 99/64; TEMP 99.2
[2021-10-07 11:44] LABS: #Eosinphils 0.1 thou/uL (0.0-0.7); #Lymphocytes 1.2 thou/uL (1.20-3.40); #Monocytes 0.6 thou/uL (0.11-0.59); #Neutrophils 2.7 thou/uL (1.40-6.50); %Basophils 0.2 % (0.0-1.0); %Eosinophils 2.1 % (0.0-10.0); %Lymphocytes 26.7 % (21.0-51.0); %Monocytes 12.3 % (0.0-10.0); %Neutrophils 58.7 % (42.0-75.0); Hemoglobin 7.9 g/dL (12.0-16.0); Mean Corpuscular HGB CONC 32.4 g/dL (32.0-36.0); Mean Corpuscular Hemoglobin 27.6 pg (27.0-31.0); Mean Corpuscular Volume 85.3 fL (78.0-98.0); Mean Platelet Volume 8.3 fL (7.4-10.4); Platelet Count 186 thou/uL (130-400); RBC Distribution Width 17.1 % (11.5-14.5); Red Blood Cell (RBC) Count 2.86 mill/uL (4.20-5.40); White Blood Cell (WBC) Count 4.5 thou/uL (4.8-10.8)
[2021-10-07 12:05] LABS: Anion Gap 12 mmol/L (10-20); BUN (Urea Nitrogen) 14 mg/dL (9.8-20.1); Calc. Creatinine Clearance 57 mL/min (70-130); Calcium 8.2 mg/dL (7.8-10.44); Carbon Dioxide 23 mmol/L (22-29); Chloride 107 mmol/L (98-107); Glucose 78 mg/dL (70-105); Potassium 4.3 mmol/L (3.5-5.1); Sodium 138 mmol/L (136-145)
== END 2021-10-07 14:21 | disposition home or self-care (01) | DRG 357 ==
LOC: SDC 07:22 → MSONC 11:12
PROVIDERS: ADMIT Surgery; ATTEND Surgery
PROC: 0JH60WZ Insertion of Totally Implantable Vascular Access Device into Chest Subcutaneous Tissue and Fascia, Open Approach (ICD-10-PCS; principal; 2021-10-06)
PROC: 02HV33Z Insertion of Infusion Device into Superior Vena Cava, Percutaneous Approach (ICD-10-PCS; 2021-10-06)
PROC: B5181ZA Fluoroscopy of Superior Vena Cava using Low Osmolar Contrast, Guidance (ICD-10-PCS; 2021-10-06)
PROC: B548ZZA Ultrasonography of Superior Vena Cava, Guidance (ICD-10-PCS; 2021-10-06)
DX: C18.9 Malignant neoplasm of colon, unspecified (principal); Z20.822 Contact with and (suspected) exposure to COVID-19; E87.1 Hypo-osmolality and hyponatremia; N17.9 Acute kidney failure, unspecified; C78.7 Secondary malignant neoplasm of liver and intrahepatic bile duct; I95.89 Other hypotension; D63.1 Anemia in chronic kidney disease; N18.30 Chronic kidney disease, stage 3 unspecified; F41.9 Anxiety disorder, unspecified; G47.00 Insomnia, unspecified; D63.0 Anemia in neoplastic disease; Z90.49 Acquired absence of other specified parts of digestive tract; Z93.2 Ileostomy status; Z87.891 Personal history of nicotine dependence; Z79.899 Other long term (current) drug therapy
CPT/HCPCS: 36415; 71045; 80048; 83605; 85025; C1788; J0171; J1642; J1885; J2250; J2370; J2405; J2704; J2765; J3010; J3490; J7050; S0020; S0028

== ENCOUNTER 2022-01-26 11:35 | Outpatient (CLI) | payer OTHER | END 2022-01-26 11:36 | disposition home or self-care (01) | LOC: CT 11:35 | PROVIDERS: ATTEND Internal Medicine Hematology & Oncology | DX: C18.2 Malignant neoplasm of ascending colon (principal); C78.7 Secondary malignant neoplasm of liver and intrahepatic bile duct | CPT/HCPCS: 74177 ==

== ENCOUNTER 2023-07-23 12:28 | Outpatient (CLI) | payer OTHER | END 2023-07-23 12:29 | disposition home or self-care (01) | LOC: CT 12:28 | PROVIDERS: ATTEND Internal Medicine Hematology & Oncology | DX: C18.2 Malignant neoplasm of ascending colon (principal); C78.7 Secondary malignant neoplasm of liver and intrahepatic bile duct; J43.2 Centrilobular emphysema; K76.9 Liver disease, unspecified | CPT/HCPCS: 71260; 74177; 82565 ==